=== PATIENT | female | born 1970 | race Caucasian/White ===

== ENCOUNTER 2017-04-27 00:10 | Inpatient (IN) | payer MEDICAID, OTHER ==
[2017-04-27] MEDS ORDERED: NS 1,000 ML IV ONE ×2 (01:09→04:38)
--- NOTE | 2017-04-27 01:09 | EDPHY ---
H & P Stated Complaint: c/o lower abd pain, pain with urination, frequency, urgency x 1 day Time Seen by Provider: 04/27/17 00:42 HPI/ROS: Chief Complaint: Left lower abdominal pain HPI: 46-year-old HIV-positive woman presenting with low lower quadrant abdominal cramping for the last 24 hours. It is similar to her prior ovarian cyst she has had in the past. She has a history of a total abdominal hysterectomy in 2014. Has had no nausea vomiting or diarrhea. Has had some urinary urgency and frequency. Her last CD4 count was 650 and her viral load is undetectable. Denies fevers or chills. No chest pain or shortness of breath. Waxes and wanes. There are no aggravating or alleviating factors. ROS: 10 point Review of Systems is negative except as noted in the HPI. PMH: HIV-positive Social History: No smoking, rare alcohol, no recreational drug use Family History: non-contributory Physical Exam: Gen: Awake, Alert, No Distress HEENT: Nose: no rhinorrhea Eyes: PERRLA, EOMI Mouth: Moist mucosa Neck: Supple, no JVD Chest: nontender, lungs clear to auscultation Heart: S1, S2 normal, no murmur Abd: Soft, significant left lower quadrant tenderness with guarding, no guarding Back: no CVA tenderness, no midline tenderness Ext: no edema, non-tender Skin: no rash Neuro: CN II-XII intact, Sensation grossly intact, Strength 5/5 in bilateral upper and lower extremities - Medical/Surgical History Hx Asthma: No Hx Chronic Respiratory Disease: No Hx Diabetes: No Hx Cardiac Disease: No Hx Renal Disease: No Hx Cirrhosis: No Hx Alcoholism: No Hx HIV/AIDS: Yes Hx Splenectomy or Spleen Trauma: No Other PMH: hiv +, hysterectomy, c section x 2, tonsillectomy - Social History Smoking Status: Never smoked Constitutional: Initial Vital Signs Temperature (C) 37.5 C 04/27/17 00:24 Heart Rate 77 04/27/17 00:24 Respiratory Rate 16 04/27/17 00:24 Blood Pressure 94/63 L 04/27/17 00:24 O2 Sat (%) 96 04/27/17 00:24 O2 Delivery Mode Room Air Allergies/Adverse Reactions: tape Allergy (Uncoded 04/27/17 00:28) Home Medications: Medication Instructions Recorded CALCIUM 04/27/17 Descovy 200-25 mg Tablet 04/27/17 Estradiol 04/27/17 Iron 04/27/17 Multivitamin 04/27/17 Norvir 04/27/17 Presista 04/27/17 VITAMIN D 04/27/17 Vitamin B12 04/27/17 Vitamin C 04/27/17 buPROPion XL 04/27/17 Medical Decision Making - Diagnostics Imaging Results: CT scan abdomen pelvis shows sigmoid diverticulitis with a pericolic fluid collection. There is no free air. Interpreted by Dr. Jonas. Ultrasound shows no free fluid in the pelvis. Ovaries are not visualized. Interpreted by Dr. Jonas. ED Course/Re-evaluation: 46-year-old female with left lower quadrant abdominal pain. She has got a sigmoid diverticulitis with some pericolic fluid collection concerning for possible early abscess. I have discussed with Dr. Jacob, hospitalist. He would like ceftriaxone and Flagyl. He has been ordered. He will admit for further evaluation. - Data Points Laboratory Results: Laboratory Results 04/27/17 01:11 04/27/17 01:11 04/27/17 04/27/17 04/27/17 01:20 01:11 01:11 WBC 8.89 10^3/uL 10^3/uL (3.80-9.50) RBC 3.26 10^6/uL L 10^6/uL (4.18-5.33) Hgb 12.1 g/dL L g/dL (12.6-16.3) Hct 34.6 % L % (38.0-47.0) MCV 106.1 fL H fL (81.5-99.8) MCH 37.1 pg H pg (27.9-34.1) MCHC 35.0 g/dL g/dL (32.4-36.7) RDW 12.1 % % (11.5-15.2) Plt Count 118 10^3/uL L 10^3/uL (150-400) MPV 9.4 fL fL (8.7-11.7) Neut % (Auto) 75.2 % H % (39.3-74.2) Lymph % (Auto) 13.0 % L % (15.0-45.0) [place] % (Auto) 9.8 % % (4.5-13.0) Eos % (Auto) 1.3 % % (0.6-7.6) Baso % (Auto) 0.3 % % (0.3-1.7) Nucleat RBC Rel Count 0.0 % % (0.0-0.2) Absolute Neuts (auto) 6.67 10^3/uL H 10^3/uL (1.70-6.50) Absolute Lymphs (auto) 1.16 10^3/uL 10^3/uL (1.00-3.00) Absolute Monos (auto) 0.87 10^3/uL H 10^3/uL (0.30-0.80) Absolute Eos (auto) 0.12 10^3/uL 10^3/uL (0.03-0.40) Absolute Basos (auto) 0.03 10^3/uL 10^3/uL (0.02-0.10) Absolute Nucleated RBC 0.00 10^3/uL 10^3/uL (0-0.01) Immature Gran % 0.4 % % (0.0-1.1) Immature Gran # 0.04 10^3/uL 10^3/uL (0.00-0.10) Sodium 140 mEq/L mEq/L (134-144) Potassium 3.9 mEq/L mEq/L (3.5-5.2) Chloride 108 mEq/L mEq/L (97-110) Carbon Dioxide 22 mEq/l mEq/l (22-31) Anion Gap 10 mEq/L mEq/L (8-16) BUN 10 mg/dL mg/dL (7-23) Creatinine 0.7 mg/dL mg/dL (0.6-1.0) Estimated GFR > 60 Glucose 112 mg/dL H mg/dL (70-100) Calcium 8.7 mg/dL mg/dL (8.5-10.4) Urine Color YELLOW Urine Appearance CLEAR Urine pH 7.0 (5.0-7.5) Ur Specific [place] 1.005 (1.002-1.030) Urine Protein NEGATIVE (NEGATIVE) Urine Ketones NEGATIVE (NEGATIVE) Urine Blood NEGATIVE (NEGATIVE) Urine Nitrate NEGATIVE (NEGATIVE) Urine Bilirubin NEGATIVE (NEGATIVE) Urine Urobilinogen NEGATIVE EU EU (0.2-1.0) Ur Leukocyte Esterase NEGATIVE (NEGATIVE) Urine Glucose NEGATIVE (NEGATIVE) Medications Given: Discontinued Medications Sodium Chloride (Ns) 1,000 mls @ 0 mls/hr IV ONCE ONE PRN Reason: Wide Open Stop: 04/27/17 01:10 Last Admin: 04/27/17 01:29 Dose: 1,000 mls Morphine Sulfate (Morphine) 4 mg IVP ONCE ONE Stop: 04/27/17 01:10 Last Admin: 04/27/17 01:29 Dose: 4 mg Departure - Departure Referrals: Elena Santacruz MD [Primary Care Provider] - As per Instructions
[2017-04-27 01:21] LABS: % IMMATURE GRANULYOCYTES 0.4 % (0.0-1.1); ABSOLUTE IMMATURE GRANULOCYTES 0.04 10^3/uL (0.00-0.10); ADD DIFF? NO; ADD MORPH? NO; ADD SCAN? NO; ATYPICAL LYMPHOCYTE FLAG 0 (0-99); FRAGMENT RBC FLAG 0 (0-99); HEMATOCRIT 34.6 % (38.0-47.0); HEMOGLOBIN 12.1 g/dL (12.6-16.3); LEFT SHIFT FLG 0 (0-99); LIPEMIA HEMOLYSIS FLAG 90 (0-99); MEAN CELL HEMOGLOBIN 37.1 pg (27.9-34.1); MEAN CELL VOLUME 106.1 fL (81.5-99.8); MEAN PLATELET VOLUME 9.4 fL (8.7-11.7); PLATELET CLUMPS FLAG 20 (0-99); PLATELET COUNT 118 10^3/uL (150-400); RED BLOOD CELL COUNT 3.26 10^6/uL (4.18-5.33); RED CELL DISTRIBUTION WIDTH 12.1 % (11.5-15.2)
[2017-04-27 01:44] LABS: ANION GAP 10 mEq/L (8-16); CALCIUM 8.7 mg/dL (8.5-10.4); CARBON DIOXIDE 22 mEq/l (22-31); CHLORIDE 108 mEq/L (97-110); CREATININE 0.7 mg/dL (0.6-1.0); GLOMERULAR FILTRATION RATE > 60; GLUCOSE 112 mg/dL (70-100); POTASSIUM 3.9 mEq/L (3.5-5.2); SODIUM 140 mEq/L (134-144)
[2017-04-27 01:57] LABS: COLOR YELLOW; LEUKOCYTE ESTERASE,URINE NEGATIVE (NEGATIVE); NITRITE,URINE NEGATIVE (NEGATIVE)
[2017-04-27] MEDS ORDERED: IOPAMIDOL (ISOVUE-300) 100 ML BTL ONE (03:16)
[2017-04-27] MEDS ORDERED: cefTRIAXone 2 GM in D5W 50 ML IV ONE (04:18)
[2017-04-27] MEDS ORDERED: ONDANSETRON DISINTEGRATING 4 MG TAB PO PRN (04:38)
[2017-04-27] MEDS ORDERED: HYDROmorphONE/DILAUDID 1 MG/ML SYR IVP PRN (04:38)
--- NOTE | 2017-04-27 04:45 | PDGENHP ---
History and Physical - Chief Complaint Abdominal pain - History of Present Illness 46 yo F w/ hx of HIV (well controlled, compliant on HAART, no hx of AIDS defining illnesses) presenting with 2 days of LLQ pain. Patient first noticed mild, crampy LLQ pain 2 days prior to presentation. This pain progressed to become severe over the course of the following 48 hours. She denies fevers, chills, diarrhea, and blood in stool. She is still passing gas but has not had a BM in 24 hours. She has a hx of prior hysterectomy but no previous bowel surgeries or complications. History Information - Allergies/Home Medication List Allergies/Adverse Reactions: tape Allergy (Uncoded 04/27/17 00:28) Home Medications: CALCIUM 04/27/17 [Last Taken Unknown] Descovy 200-25 mg Tablet 04/27/17 [Last Taken Unknown] Estradiol 04/27/17 [Last Taken Unknown] Iron 04/27/17 [Last Taken Unknown] Multivitamin 04/27/17 [Last Taken Unknown] Norvir 04/27/17 [Last Taken Unknown] Presista 04/27/17 [Last Taken Unknown] VITAMIN D 04/27/17 [Last Taken Unknown] Vitamin B12 04/27/17 [Last Taken Unknown] Vitamin C 04/27/17 [Last Taken Unknown] buPROPion XL 04/27/17 [Last Taken Unknown] I have personally reviewed and updated: family history, medical history - Past Medical History HIV - Surgical History Reports: hysterectomy - Family History Positive for: CAD - Social History Smoking Status: Never smoked Alcohol Use: None Drug Use: None Review of Systems ROS: 10pt was reviewed & negative except for what was stated in HPI & below Physical Exam Temp Pulse Resp BP Pulse Ox 37.5 C 67 16 88/62 L 93 04/27/17 00:24 04/27/17 03:46 04/27/17 03:46 04/27/17 03:46 04/27/17 03:46 Constitutional: appears nourished, uncomfortable Eyes: PERRL, EOMI Ears, Nose, Mouth, Throat: moist mucous membranes, no oral mucosal ulcers Cardiovascular: regular rate and rhythym, no murmur, rub, or gallop Respiratory: no respiratory distress, clear to auscultation Gastrointestinal: tenderness (LLQ, severe), guarding, No rebound Skin: warm, no rashes or abrasions Musculoskeletal: full muscle strength, no muscle tenderness Neurologic: AAOx3, CN II-XII Intact Psychiatric: interacting appropriately, not anxious Lab Data & Imaging Review 04/27/17 01:11 04/27/17 01:11 WBC 8.89 10^3/uL (3.80-9.50) 04/27/17 01:11 RBC 3.26 10^6/uL (4.18-5.33) L 04/27/17 01:11 Hgb 12.1 g/dL (12.6-16.3) L 04/27/17 01:11 Hct 34.6 % (38.0-47.0) L 04/27/17 01:11 MCV 106.1 fL (81.5-99.8) H 04/27/17 01:11 MCH 37.1 pg (27.9-34.1) H 04/27/17 01:11 MCHC 35.0 g/dL (32.4-36.7) 04/27/17 01:11 RDW 12.1 % (11.5-15.2) 04/27/17 01:11 Plt Count 118 10^3/uL (150-400) L 04/27/17 01:11 MPV 9.4 fL (8.7-11.7) 04/27/17 01:11 Neut % (Auto) 75.2 % (39.3-74.2) H 04/27/17 01:11 Lymph % (Auto) 13.0 % (15.0-45.0) L 04/27/17 01:11 [place] % (Auto) 9.8 % (4.5-13.0) 04/27/17 01:11 Eos % (Auto) 1.3 % (0.6-7.6) 04/27/17 01:11 Baso % (Auto) 0.3 % (0.3-1.7) 04/27/17 01:11 Nucleat RBC Rel Count 0.0 % (0.0-0.2) 04/27/17 01:11 Absolute Neuts (auto) 6.67 10^3/uL (1.70-6.50) H 04/27/17 01:11 Absolute Lymphs (auto) 1.16 10^3/uL (1.00-3.00) 04/27/17 01:11 Absolute Monos (auto) 0.87 10^3/uL (0.30-0.80) H 04/27/17 01:11 Absolute Eos (auto) 0.12 10^3/uL (0.03-0.40) 04/27/17 01:11 Absolute Basos (auto) 0.03 10^3/uL (0.02-0.10) 04/27/17 01:11 Absolute Nucleated RBC 0.00 10^3/uL (0-0.01) 04/27/17 01:11 Immature Gran % 0.4 % (0.0-1.1) 04/27/17 01:11 Immature Gran # 0.04 10^3/uL (0.00-0.10) 04/27/17 01:11 Sodium 140 mEq/L (134-144) 04/27/17 01:11 Potassium 3.9 mEq/L (3.5-5.2) 04/27/17 01:11 Chloride 108 mEq/L (97-110) 04/27/17 01:11 Carbon Dioxide 22 mEq/l (22-31) 04/27/17 01:11 Anion Gap 10 mEq/L (8-16) 04/27/17 01:11 BUN 10 mg/dL (7-23) 04/27/17 01:11 Creatinine 0.7 mg/dL (0.6-1.0) 04/27/17 01:11 Estimated GFR > 60 04/27/17 01:11 Glucose 112 mg/dL (70-100) H 04/27/17 01:11 Calcium 8.7 mg/dL (8.5-10.4) 04/27/17 01:11 Urine Color YELLOW 04/27/17 01:20 Urine Appearance CLEAR 04/27/17 01:20 Urine pH 7.0 (5.0-7.5) 04/27/17 01:20 Ur Specific [place] 1.005 (1.002-1.030) 04/27/17 01:20 Urine Protein NEGATIVE (NEGATIVE) 04/27/17 01:20 Urine Ketones NEGATIVE (NEGATIVE) 04/27/17 01:20 Urine Blood NEGATIVE (NEGATIVE) 04/27/17 01:20 Urine Nitrate NEGATIVE (NEGATIVE) 04/27/17 01:20 Urine Bilirubin NEGATIVE (NEGATIVE) 04/27/17 01:20 Urine Urobilinogen NEGATIVE EU (0.2-1.0) 04/27/17 01:20 Ur Leukocyte Esterase NEGATIVE (NEGATIVE) 04/27/17 01:20 Urine Glucose NEGATIVE (NEGATIVE) 04/27/17 01:20 Imaging Review: Discussed imaging results with ED physician. Per radiology, CT w/ evidence of sigmoid diverticulitis, pericolic fluid collection, and no free air. Assessment & Plan Assessment: 46 yo F w/ well controlled HIV presents with acute diverticulitis. Plan: 1. Acute diverticulitis - Sigmoid diverticulitis with morris-colic fluid collection but no clear abscess, per radiologist. Afebrile and with normal WBC. In severe pain for 48 hours prior to presentation. She denies blood in her stool. - IVF, Ceftriaxone and Metronidazole for empiric intra-abdominal coverage - Will order blood cultures - IV pain control and anti-emetics - May require surgical consult if symptoms do not resolve with supportive care 2. HIV - Well controlled, last CD4 650 and VL undetectable. Diet - Clears, ADAT Ppx - SCDs Code - Full Dispo - Admit to inpatient for IV abx and monitoring of symptoms
[2017-04-27 06:01] LABS: % IMMATURE GRANULYOCYTES 0.5 % (0.0-1.1); ABSOLUTE IMMATURE GRANULOCYTES 0.04 10^3/uL (0.00-0.10); ADD DIFF? NO; ADD MORPH? NO; ADD SCAN? NO; ATYPICAL LYMPHOCYTE FLAG 0 (0-99); FRAGMENT RBC FLAG 0 (0-99); HEMATOCRIT 33.3 % (38.0-47.0); HEMOGLOBIN 11.3 g/dL (12.6-16.3); LEFT SHIFT FLG 0 (0-99); LIPEMIA HEMOLYSIS FLAG 90 (0-99); MEAN CELL HEMOGLOBIN 36.7 pg (27.9-34.1); MEAN CELL HEMOGLOBIN CONCENTR. 33.9 g/dL (32.4-36.7); MEAN CELL VOLUME 108.1 fL (81.5-99.8); MEAN PLATELET VOLUME 9.2 fL (8.7-11.7); PLATELET CLUMPS FLAG 10 (0-99); PLATELET COUNT 107 10^3/uL (150-400); RED BLOOD CELL COUNT 3.08 10^6/uL (4.18-5.33); RED CELL DISTRIBUTION WIDTH 12.3 % (11.5-15.2)
[2017-04-27] MEDS: oxyCODONE IR 5 MG TAB PO PRN ×3 (06:01→12:42)
[2017-04-27 06:22] LABS: ANION GAP 9 mEq/L (8-16); CALCIUM 8.1 mg/dL (8.5-10.4); CARBON DIOXIDE 23 mEq/l (22-31); CHLORIDE 108 mEq/L (97-110); CREATININE 0.6 mg/dL (0.6-1.0); GLOMERULAR FILTRATION RATE > 60; GLUCOSE 90 mg/dL (70-100); POTASSIUM 3.8 mEq/L (3.5-5.2); SODIUM 140 mEq/L (134-144)
[2017-04-27] MEDS ORDERED: NON-FORMULARY NEW DRUG (Emtricitabine/Tenofov Alafenam [Descovy 200-25 Mg Tablet] 1 EACH) PO SCH (12:00)
[2017-04-27] MEDS ORDERED: RITONAVIR 100 MG TAB PO SCH (12:00)
[2017-04-27] MEDS ORDERED: Herbals/Supplements -Info Only PO SCH (12:00)
[2017-04-27] MEDS ORDERED: DARUNAVIR ETHANOLATE 800 MG TAB PO SCH (12:00)
[2017-04-27] MEDS ORDERED: CYANOCOBALAMIN 2500 MCG PO SCH (12:00)
--- NOTE | 2017-04-27 12:22 | HOSPPROG ---
Hospitalist Progress Note Assessment/Plan: Patient is a 46-year-old female with history of HIV, compliant with her medications who presented to the emergency room with 2 days of left lower quadrant pain. She describes it as being mild and crampy but became severe. I reviewed her CT scan of her abdomen which shows sigmoid diverticulitis with possible pericolic abscess. Today is my 1st encounter with the patient. Chart reviewed. * acute diverticulitis an immuno compromised patient On ceftriaxone and Flagyl Blood cultures are pending Will monitor closely out of concern for a possible abscess Pain is quite severe during my evaluation, spoke with Dr. Manzo and will have him follow with her She is afebrile with a stable white blood cell count but concerned due to being immunocompromised * HIV Last CD4 count was 650 and viral load was undetectable * plan. Dr. Manzo to see. Will notify Dr. Rothman of patient's admission. Subjective: Coby said she is feeling fine but had severe pain with gentle palpation to her left lower quadrant area. Objective: Vital Signs Temp Pulse Resp BP Pulse Ox 36.8 C 67 16 101/67 96 04/27/17 07:03 04/27/17 09:19 04/27/17 09:19 04/27/17 09:19 04/27/17 09:19 Laboratory Results 04/27/17 05:42 04/27/17 05:42 04/26/17 04/27/17 04/28/17 05:59 05:59 05:59 Intake Total 1350 Balance 1350 - Physical Exam Constitutional: appears nourished, obese, No not in pain Eyes: PERRL Ears, Nose, Mouth, Throat: hearing normal Cardiovascular: regular rate and rhythym Respiratory: no respiratory distress Gastrointestinal: tenderness (Left lower quadrant with very gentle touch), No normoactive bowel sounds (Hypoactive) Skin: warm, normal color Musculoskeletal: full muscle strength Neurologic: AAOx3 Psychiatric: interacting appropriately, not anxious ICD10 Worksheet Patient Problems: Problems Problem Status Onset Diverticulitis Acute - ICD10 Problem Qualifiers (1) Diverticulitis Qualifiers: Diverticulitis site: D Diverticulitis bleeding: D Diverticulitis complication: D
[2017-04-27] MEDS: ESTRADIOL 1 MG TAB PO SCH (12:34)
[2017-04-27] MEDS: MULTIVITAMINS 1 EACH TAB PO SCH (12:34)
[2017-04-27] MEDS: CHOLECALCIFEROL VIT D3 1,000 UNITS TAB PO SCH (12:34)
[2017-04-27] MEDS: buPROPion XL 150 MG TAB PO SCH (12:34)
[2017-04-27] MEDS: RITONAVIR 100 MG TAB PO SCH (12:35)
[2017-04-27] MEDS: DARUNAVIR ETHANOLATE 800 MG TAB PO SCH (12:36)
[2017-04-27] MEDS: Emtricitabine/Tenofov Alafenam [Descovy 200-25 Mg Tablet] PO SCH (12:37)
--- NOTE | 2017-04-27 15:16 | SOAPPROG ---
SOAP Progress Note Assessment/Plan: Assessment: 46-YEAR-OLD FEMALE WHO PRESENTS WITH HER 1ST EPISODE OF DIVERTICULITIS WITH SIGNIFICANT LEFT LOWER QUADRANT TENDERNESS FOR 72 HOURS. SHE IS AFEBRILE AND HAVING NO DIARRHEA OR CONSTIPATION PROBLEM. SHE HAS HAD NO PRIOR EPISODES OF DIVERTICULITIS. SHE HAS HAD NO COLONOSCOPY PAST HISTORY INCLUDES 2 C SECTIONS AND ABDOMINAL HYSTERECTOMY/SHE IS ALSO HIV POSITIVE ALLERGIES ARE TAPE MEDICATIONS ARE ANTI-RETROVIRAL MEDICINES, WELLBUTRIN REVIEW OF SYSTEMS IS NONCONTRIBUTORY HEENT IS NONICTERIC WITHOUT ADENOPATHY CHEST CLEAR COR REGULAR RHYTHM ABDOMEN IS SOFT SHE IS TENDER IN THE LEFT LOWER QUADRANT BUT NO GUARDING OR REBOUND/POSITIVE BOWEL SOUNDS EXTREMITIES ARE BENIGN WITH FULL PULSES IMPRESSION IS SIGNIFICANT DIVERTICULITIS/ON CT SCAN IS SUGGESTED A POSSIBLE EARLY ABSCESS FORMATION BUT SHE REMAINED AFEBRILE RISKS AND OPTIONS BEEN FULLY DISCUSSED THE PATIENT. WE WILL FOLLOW HER WITH YOU. IF SHE FAILS TO IMPROVE SHE WILL NEED SURGERY AND IF SHE DOES IMPROVE SHE MAY NEED ELECTIVE SURGERY DOWN THE LINE FOR HER DIVERTICULAR DISEASE Plan: OBSERVATION ON ANTIBIOTICS, IVS, CLEAR LIQUIDS 04/27/17 15:10 Objective: Vital Signs Temp Pulse Resp BP Pulse Ox 36.8 C 67 16 101/67 96 04/27/17 07:03 04/27/17 09:19 04/27/17 09:19 04/27/17 09:19 04/27/17 09:19 Laboratory Results 04/27/17 05:42 04/27/17 05:42 04/26/17 04/27/17 04/28/17 05:59 05:59 05:59 Intake Total 1350 Balance 1350 ICD10 Worksheet Patient Problems: Problems Problem Status Onset Diverticulitis Acute
[2017-04-27] MEDS: ONDANSETRON 4 MG/2 ML VIAL IVP PRN (19:29)
[2017-04-27] MEDS: ACETAMINOPHEN 325 MG TAB PO PRN (19:45)
[2017-04-28] MEDS: ACETAMINOPHEN 325 MG TAB PO PRN (06:08)
[2017-04-28] MEDS: ONDANSETRON 4 MG/2 ML VIAL IVP PRN ×2 (07:58→13:30)
[2017-04-28] MEDS: CHOLECALCIFEROL VIT D3 1,000 UNITS TAB PO SCH (08:04)
[2017-04-28] MEDS: buPROPion XL 150 MG TAB PO SCH (08:04)
[2017-04-28] MEDS: MULTIVITAMINS 1 EACH TAB PO SCH (08:05)
[2017-04-28] MEDS: CYANO/VITAMIN B12 1000 MCG TAB PO SCH (08:05)
[2017-04-28] MEDS: ASCORBIC ACID 500 MG TAB PO SCH (08:05)
[2017-04-28] MEDS: CALCIUM CARBONATE 500 MG TAB PO SCH (08:05)
[2017-04-28] MEDS: ESTRADIOL 1 MG TAB PO SCH (08:05)
[2017-04-28] MEDS: Emtricitabine/Tenofov Alafenam [Descovy 200-25 Mg Tablet] PO SCH (08:13)
[2017-04-28] MEDS: RITONAVIR 100 MG TAB PO SCH (08:13)
[2017-04-28] MEDS: DARUNAVIR ETHANOLATE 800 MG TAB PO SCH (08:13)
--- NOTE | 2017-04-28 08:34 | HOSPPROG ---
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 Cont IVF, abx. Surgery recs sigmoid resection in next few weeks #HIV: last viral load undetectable. Cont home meds #Acute abdominal pain: improved. IV opioids #Macrocytic anemia: stable #Diet: clears #DVT ppx: SCDs #Disp: cont inpt care for IV abx, pain control Subjective: no vomiting today, LLQ crampy pain Objective: Vital Signs Temp Pulse Resp BP Pulse Ox 36.7 C 99 20 112/75 98 04/28/17 07:32 04/28/17 07:32 04/28/17 07:32 04/28/17 07:32 04/28/17 07:32 Laboratory Results 04/27/17 05:42 04/27/17 05:42 04/27/17 04/28/17 04/29/17 05:59 05:59 05:59 Intake Total 1350 550 Balance 1350 550 - Physical Exam Constitutional: no apparent distress Eyes: PERRL Ears, Nose, Mouth, Throat: moist mucous membranes Cardiovascular: regular rate and rhythym, no murmur, rub, or gallop Respiratory: no respiratory distress, no rales or rhonchi Gastrointestinal: normoactive bowel sounds, tenderness (LLQ, no rebound/guarding ) Skin: warm Musculoskeletal: full muscle strength Neurologic: AAOx3, CN II-XII Intact ICD10 Worksheet Patient Problems: Problems Problem Status Onset Diverticulitis Acute
[2017-04-28] MEDS ORDERED: CALCIUM CARBONATE 600 MG PO SCH (09:00)
[2017-04-28] MEDS ORDERED: NS 1,000 ML IV SCH (10:00)
--- NOTE | 2017-04-28 10:23 | SOAPPROG ---
SOAP Progress Note Assessment/Plan: Assessment/Plan: 46 Y F HIV+, first episode of diverticulitis with likely early abscess formation. Seems to be doing well with IV antibiotics and clears. Would recommend further observation due to tenderness. Afebrile. WBCs wnl. We discussed several scenarios involving surgery. This is her first episode, however, with the early abscess formation I would recommend eventual sigmoid colectomy. Ideally, this would happen in several weeks once more cooled down. S: still has pain, but it is better. 11/29. On tylenol only for pain now. Had episode of N/V--zofran helping. No BM, +flatus. No fever/chills. O: alert, nad mmm, pupils equal no wob rrr abd soft, +LLQ tenderness with mild guarding 04/28/17 10:18 Objective: Vital Signs Temp Pulse Resp BP Pulse Ox 36.7 C 99 20 112/75 98 04/28/17 07:32 04/28/17 07:32 04/28/17 07:32 04/28/17 07:32 04/28/17 07:32 Laboratory Results 04/27/17 05:42 04/27/17 05:42 04/27/17 04/28/17 04/29/17 05:59 05:59 05:59 Intake Total 1350 550 Balance 1350 550 ICD10 Worksheet Patient Problems: Problems Problem Status Onset Diverticulitis Acute
--- NOTE | 2017-04-28 11:07 | SOAPPROG ---
SOAP Progress Note Assessment/Plan: Assessment: 46-YEAR-OLD FEMALE WHO PRESENTS WITH HER 1ST EPISODE OF DIVERTICULITIS WITH SIGNIFICANT LEFT LOWER QUADRANT TENDERNESS FOR 72 HOURS. SHE IS AFEBRILE AND HAVING NO DIARRHEA OR CONSTIPATION PROBLEM. SHE HAS HAD NO PRIOR EPISODES OF DIVERTICULITIS. SHE HAS HAD NO COLONOSCOPY PAST HISTORY INCLUDES 2 C SECTIONS AND ABDOMINAL HYSTERECTOMY/SHE IS ALSO HIV POSITIVE ALLERGIES ARE TAPE MEDICATIONS ARE ANTI-RETROVIRAL MEDICINES, WELLBUTRIN REVIEW OF SYSTEMS IS NONCONTRIBUTORY HEENT IS NONICTERIC WITHOUT ADENOPATHY CHEST CLEAR COR REGULAR RHYTHM ABDOMEN IS SOFT SHE IS TENDER IN THE LEFT LOWER QUADRANT BUT NO GUARDING OR REBOUND/POSITIVE BOWEL SOUNDS EXTREMITIES ARE BENIGN WITH FULL PULSES IMPRESSION IS SIGNIFICANT DIVERTICULITIS/ON CT SCAN IS SUGGESTED A POSSIBLE EARLY ABSCESS FORMATION BUT SHE REMAINED AFEBRILE RISKS AND OPTIONS BEEN FULLY DISCUSSED THE PATIENT. WE WILL FOLLOW HER WITH YOU. 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
[2017-04-29 05:41] LABS: HEMATOCRIT 32.6 % (38.0-47.0); HEMOGLOBIN 11.1 g/dL (12.6-16.3); MEAN CELL HEMOGLOBIN 36.9 pg (27.9-34.1); MEAN CELL VOLUME 108.3 fL (81.5-99.8); RED BLOOD CELL COUNT 3.01 10^6/uL (4.18-5.33); RED CELL DISTRIBUTION WIDTH 11.9 % (11.5-15.2)
[2017-04-29 05:54] LABS: ANION GAP 7 mEq/L (8-16); CALCIUM 8.4 mg/dL (8.5-10.4); CARBON DIOXIDE 25 mEq/l (22-31); CHLORIDE 107 mEq/L (97-110); CREATININE 0.7 mg/dL (0.6-1.0); GLOMERULAR FILTRATION RATE > 60; GLUCOSE 79 mg/dL (70-100); SODIUM 139 mEq/L (134-144)
--- NOTE | 2017-04-29 08:11 | HOSPPROG ---
Hospitalist Progress Note Assessment/Plan: #Acute diverticulitis: surgery would like to cont IV abx with pain. Sigmoid resection in next few weeks #HIV: last viral load undetectable. Cont home meds #Acute abdominal pain: improved. IV opioids #Macrocytic anemia: stable #Diet: low-fiber diet #DVT ppx: SCDs #Disp: cont inpt care for IV abx, pain control Subjective: pain still present. Tolerated breakfast Objective: Vital Signs Temp Pulse Resp BP Pulse Ox 36.9 C 60 20 118/84 H 97 04/29/17 07:49 04/29/17 07:49 04/29/17 07:49 04/29/17 07:49 04/29/17 07:49 Laboratory Results 04/29/17 04:57 04/29/17 04:57 04/28/17 04/29/17 04/30/17 05:59 05:59 05:59 Intake Total 550 650 Output Total 200 Balance 550 450 - Physical Exam Constitutional: no apparent distress, obese Eyes: PERRL Ears, Nose, Mouth, Throat: moist mucous membranes, hearing normal Cardiovascular: regular rate and rhythym, no murmur, rub, or gallop Respiratory: no respiratory distress, no rales or rhonchi Gastrointestinal: tenderness (left lower quad. No rebound/guard) Skin: warm Musculoskeletal: full muscle strength Neurologic: AAOx3, CN II-XII Intact ICD10 Worksheet Patient Problems: Problems Problem Status Onset Diverticulitis Acute
[2017-04-29] MEDS: buPROPion XL 150 MG TAB PO SCH (08:45)
[2017-04-29] MEDS: RITONAVIR 100 MG TAB PO SCH (08:47)
[2017-04-29] MEDS: DARUNAVIR ETHANOLATE 800 MG TAB PO SCH (08:47)
[2017-04-29] MEDS: Emtricitabine/Tenofov Alafenam [Descovy 200-25 Mg Tablet] PO SCH (08:48)
[2017-04-29] MEDS: ASCORBIC ACID 500 MG TAB PO SCH (09:42)
[2017-04-29] MEDS: CALCIUM CARBONATE 500 MG TAB PO SCH (09:42)
[2017-04-29] MEDS: CHOLECALCIFEROL VIT D3 1,000 UNITS TAB PO SCH (09:43)
[2017-04-29] MEDS: MULTIVITAMINS 1 EACH TAB PO SCH (09:43)
[2017-04-29] MEDS: ESTRADIOL 1 MG TAB PO SCH (09:43)
[2017-04-29] MEDS: CYANO/VITAMIN B12 1000 MCG TAB PO SCH (09:43)
--- NOTE | 2017-04-29 11:22 | SOAPPROG ---
SOAP Progress Note Assessment/Plan: Assessment/Plan: 46 Y F HIV+, first episode of diverticulitis with likely early abscess formation. Responding to antibiotics. Afebrile, WBC's wnl, pyrotechnics press tender but with improvement. Continue IV abx. Ok to try low residue/low fiber diet. Again, will likely need sigmoid colectomy despite this being her first episode. Ideally this would happen in several weeks after repeat scanning if she does well. Seen and examined with Dr. Manzo. D/w'ed medicine. S: Not using tylenol anymore. No pain at rest, +pain with pressure. +n/v with clears only. Crackers helped last night. O: alert, nad mmm, pupils equal no wob rrr abd soft, +LLQ tenderness with mild--less--guarding, compared to yesterday 04/29/17 11:19 Objective: Vital Signs Temp Pulse Resp BP Pulse Ox 36.9 C 60 20 118/84 H 97 04/29/17 07:49 04/29/17 07:49 04/29/17 07:49 04/29/17 07:49 04/29/17 07:49 Laboratory Results 04/29/17 04:57 04/29/17 04:57 04/28/17 04/29/17 04/30/17 05:59 05:59 05:59 Intake Total 550 650 Output Total 200 Balance 550 450 ICD10 Worksheet Patient Problems: Problems Problem Status Onset Diverticulitis Acute
[2017-04-30] MEDS: ACETAMINOPHEN 325 MG TAB PO PRN ×2 (02:00→09:22)
[2017-04-30 06:04] LABS: ANION GAP 8 mEq/L (8-16); CALCIUM 8.7 mg/dL (8.5-10.4); CARBON DIOXIDE 27 mEq/l (22-31); CHLORIDE 104 mEq/L (97-110); CREATININE 0.7 mg/dL (0.6-1.0); GLOMERULAR FILTRATION RATE > 60; GLUCOSE 88 mg/dL (70-100); SODIUM 139 mEq/L (134-144)
[2017-04-30 08:05] VITALS: BP 127/78; PULSE 58; RESP 12; TEMP 98.2
[2017-04-30 08:06] VITALS: O2SAT 97
[2017-04-30] MEDS: buPROPion XL 150 MG TAB PO SCH (09:25)
[2017-04-30] MEDS: ESTRADIOL 1 MG TAB PO SCH (09:25)
[2017-04-30] MEDS: Emtricitabine/Tenofov Alafenam [Descovy 200-25 Mg Tablet] PO SCH (09:26)
[2017-04-30] MEDS: DARUNAVIR ETHANOLATE 800 MG TAB PO SCH (09:28)
[2017-04-30] MEDS: RITONAVIR 100 MG TAB PO SCH (09:29)
[2017-04-30] MEDS: ASCORBIC ACID 500 MG TAB PO SCH (09:56)
[2017-04-30] MEDS: CALCIUM CARBONATE 500 MG TAB PO SCH (09:57)
[2017-04-30] MEDS: CHOLECALCIFEROL VIT D3 1,000 UNITS TAB PO SCH (09:57)
[2017-04-30] MEDS: CYANO/VITAMIN B12 1000 MCG TAB PO SCH (09:58)
[2017-04-30] MEDS: MULTIVITAMINS 1 EACH TAB PO SCH (09:58)
--- NOTE | 2017-04-30 10:41 | SOAPPROG ---
SOAP Progress Note Assessment/Plan: Assessment/Plan: 46 Y F HIV+, first episode of diverticulitis with likely early abscess formation. Tenderness much better. Tolerating low fiber diet. Doing better with N/V since diet advancement. This problem likely 2/2 HIV meds and empty stomach. Again, will likely need sigmoid colectomy despite this being her first episode. Ideally this would happen in several weeks after repeat scanning if she does well. This all discussed with patient. Could likely d/c to home today with oral antibiotics, low residue diet, and close outpatient f/u. S: Not using tylenol anymore. Pain and N/V much improved. O: alert, nad mmm, pupils equal no wob rrr abd soft, +LLQ tenderness with mild--less--guarding, compared to yesterday again 04/30/17 10:37 Objective: Vital Signs Temp Pulse Resp BP Pulse Ox 36.8 C 58 L 12 127/78 H 97 04/30/17 08:00 04/30/17 08:00 04/30/17 08:00 04/30/17 08:00 04/30/17 08:00 Laboratory Results 04/29/17 04:57 04/30/17 05:35 04/29/17 04/30/17 05/01/17 05:59 05:59 05:59 Intake Total 650 480 Output Total 200 Balance 450 480 ICD10 Worksheet Patient Problems: Problems Problem Status Onset Diverticulitis Acute
--- NOTE | 2017-04-30 11:01 | HOSPPROG ---
Hospitalist Progress Note Assessment/Plan: #Acute diverticulitis: improved pain. Tolerating low-fiber diet. FU surgery. Oral abx Sigmoid resection in next few weeks #HIV: last viral load undetectable. Cont home meds #Acute abdominal pain: improved. IV opioids #Macrocytic anemia: stable #Diet: low-fiber diet #DVT ppx: SCDs #Disp: DC today Objective: Vital Signs Temp Pulse Resp BP Pulse Ox 36.8 C 58 L 12 127/78 H 97 04/30/17 08:00 04/30/17 08:00 04/30/17 08:00 04/30/17 08:00 04/30/17 08:00 Laboratory Results 04/29/17 04:57 04/30/17 05:35 04/29/17 04/30/17 05/01/17 05:59 05:59 05:59 Intake Total 650 480 Output Total 200 Balance 450 480 - Physical Exam Constitutional: no apparent distress Eyes: PERRL Ears, Nose, Mouth, Throat: moist mucous membranes, hearing normal Cardiovascular: regular rate and rhythym, no murmur, rub, or gallop Respiratory: no respiratory distress, no rales or rhonchi Gastrointestinal: tenderness (left LLQ), No guarding, No rebound Genitourinary: no bladder fullness Skin: warm Musculoskeletal: full muscle strength Neurologic: AAOx3, CN II-XII Intact ICD10 Worksheet Patient Problems: Problems Problem Status Onset Diverticulitis Acute
--- NOTE | 2017-04-30 14:56 | GDS ---
[f rep st] DISCHARGE SUMMARY DISCHARGE DIAGNOSES: 1. Acute diverticulitis. 2. Acute abdominal pain. 3. Human immunodeficiency virus. 4. Macrocytic anemia. HISTORY OF PRESENT ILLNESS: Patient is a pleasant 46-year-old female with history of well-controlle d HIV presenting with 2 days of left lower quadrant pain. It was initially mild and cramping. Guerrero john, it became so severe over the last couple days prior to admission, she was unable to tolerate. She denies fevers, chills, sweats, diarrhea. At time of admission, she was still passing gas but no t had a BM in 24 hours. HOSPITAL COURSE BY PROBLEM: 1. Acute diverticulitis: CT demonstrated sigmoid diverticulitis with pericolic fluid collection bu t no clear abscess. Dr. Manzo consulted with Surgery. She was treated conservatively with IV fluid s and antibiotics. She still has mild tenderness but is tolerating p.o. and having BMs. Will trans ition to Augmentin at discharge for 7 more days. She is to follow up with Dr. Manzo for elective si gmoid resection in the next couple weeks. 2. Human immunodeficiency virus, well controlled. Last viral load was undetectable. 3. Microcytic anemia. DISPOSITION: Patient is stable for discharge. NEW MEDICATIONS: Augmentin. FOLLOWUP: Dr. Manzo. /[id number]/MODL
== END 2017-04-30 11:55 | disposition home or self-care (01) | DRG 392 ==
LOC: F3E 05:25
PROVIDERS: ADMIT Student in an Organized Health Care Education/Training Program; ATTEND Internal Medicine
DX: K57.92 Diverticulitis of intestine, part unspecified, without perforation or abscess without bleeding (principal); Z21 Asymptomatic human immunodeficiency virus [HIV] infection status; Z90.710 Acquired absence of both cervix and uterus; D53.9 Nutritional anemia, unspecified
CPT/HCPCS: J0696; J2405; Q9967

== ENCOUNTER → 2017-06-20 | Outpatient (CLI) | payer OTHER ==
[~2017-06-20] MED LIST: IOPAMIDOL (ISOVUE-300) 100 ML BTL ONE
== END ==
LOC: FIMAGING 14:50
PROVIDERS: ATTEND Surgery
DX: K57.12 Diverticulitis of small intestine without perforation or abscess without bleeding (principal)
CPT/HCPCS: Q9967

== ENCOUNTER 2017-06-23 16:21 | Inpatient (IN) | payer OTHER ==
[2017-06-23] MEDS ORDERED: ONDANSETRON 4 MG/2 ML VIAL IVP PRN (16:46)
[2017-06-23] MEDS ORDERED: ONDANSETRON DISINTEGRATING 4 MG TAB PO PRN (16:46)
[2017-06-23] MEDS: HYDROmorphONE/DILAUDID 1 MG/ML INJ IVP PRN (17:53)
[2017-06-23] MEDS: ERTAPENEM 1 GM in NS 100 ML IV SCH (18:08)
[2017-06-23] MEDS: D5W 1/2 NS 1,000 ML IV SCH (19:14)
[2017-06-23 20:18] LABS: % IMMATURE GRANULYOCYTES 0.2 % (0.0-1.1); ABSOLUTE IMMATURE GRANULOCYTES 0.01 10^3/uL (0.00-0.10); ADD DIFF? NO; ADD MORPH? NO; ADD SCAN? NO; ATYPICAL LYMPHOCYTE FLAG 10 (0-99); FRAGMENT RBC FLAG 0 (0-99); HEMATOCRIT 35.5 % (38.0-47.0); HEMOGLOBIN 12.3 g/dL (12.6-16.3); LEFT SHIFT FLG 0 (0-99); LIPEMIA HEMOLYSIS FLAG 90 (0-99); MEAN CELL HEMOGLOBIN 36.9 pg (27.9-34.1); MEAN CELL HEMOGLOBIN CONCENTR. 34.6 g/dL (32.4-36.7); MEAN CELL VOLUME 106.6 fL (81.5-99.8); MEAN PLATELET VOLUME 8.9 fL (8.7-11.7); PLATELET CLUMPS FLAG 0 (0-99); PLATELET COUNT 157 10^3/uL (150-400); RED BLOOD CELL COUNT 3.33 10^6/uL (4.18-5.33); RED CELL DISTRIBUTION WIDTH 12.3 % (11.5-15.2)
--- NOTE | 2017-06-23 20:28 | PDGENHP ---
History & Physical Chief Complaint: LEFT LOWER QUADRANT PAIN History of Present Illness: 46-YEAR-OLD FEMALE WITH RECURRENT LEFT LOWER QUADRANT PAIN, RECENT TREATMENT FOR DIVERTICULITIS. ADMITTED AT THIS TIME FOR IV ANTIBIOTICS AND PAIN CONTROL. SHE IS AFEBRILE. Pertinent Past, Social, Family History: PAST MEDICAL HISTORY 2 C SECTIONS AND A HYSTERECTOMY. REVIEW OF SYSTEMS IS NEGATIVE ON A 10 POINT REVIEW OF SYSTEMS. NO KNOWN ALLERGIES. MEDICATIONS NONE. FAMILY HISTORY IS NONCONTRIBUTORY Relevant Physical Exam: GENERAL AND HEALTHY 46-YEAR-OLD FEMALE WHO IS IN SOME DISCOMFORT, AFEBRILE. HEENT WITHOUT ICTERUS ADENOPATHY OR ORAL LESIONS, NECK IS SUPPLE. CHEST CLEAR AND SYMMETRIC. COR REGULAR RHYTHM WITHOUT MURMURS. ABDOMEN IS SOFT BUT SEVERELY TENDER IN THE LEFT LOWER QUADRANT WITH GUARDING. EXTREMITIES ARE BENIGN. NEURO EXAM IS PHYSIOLOGIC. SKIN WITHOUT LESIONS Cardiorespiratory Assessment: IMPRESSION: RECURRENT DIVERTICULITIS DESPITE IN IMPROVING CT SCAN DONE ONLY 3 DAYS AGO. PLAN IS ADMIT FOR IV ANTIBIOTICS AND PAIN CONTROL. RISKS AND OPTIONS FULLY DISCUSSED. SHE UNDERSTANDS THE POSSIBLE NEED FOR SURGERY
[2017-06-23 20:35] LABS: ALANINE AMINOTRANSFERASE 56 IU/L (9-52); ALBUMIN 3.7 g/dL (3.5-5.0); ALKALINE PHOSPHATASE 76 IU/L (38-126); ANION GAP 9 mEq/L (8-16); ASPARTATE AMINOTRANSFERASE 32 IU/L (14-46); BILIRUBIN,TOTAL 0.4 mg/dL (0.1-1.4); CALCIUM 8.5 mg/dL (8.5-10.4); CARBON DIOXIDE 26 mEq/l (22-31); CHLORIDE 103 mEq/L (97-110); CREATININE 0.7 mg/dL (0.6-1.0); GLOMERULAR FILTRATION RATE > 60; GLUCOSE 101 mg/dL (70-100); POTASSIUM 3.7 mEq/L (3.5-5.2); SODIUM 138 mEq/L (134-144); TOTAL PROTEIN 6.2 g/dL (6.3-8.2)
[2017-06-24] MEDS: ACETAMINOPHEN 325 MG TAB PO PRN ×3 (03:03→17:32)
[2017-06-24] MEDS: D5W 1/2 NS 1,000 ML IV SCH ×3 (03:03→20:36)
[2017-06-24] MEDS: ERTAPENEM 1 GM in NS 100 ML IV SCH (08:20)
--- NOTE | 2017-06-24 09:33 | ASMTCMCOM ---
CM Note CM Note Notes: Pt being treated for diverticulitis, anticipate will dc home w/support of family when medically stable. CM available for any changes. Date Signed: 06/24/2017 09:32 AM Electronically Signed By:Leigh Garner RN
[2017-06-24 12:41] LABS: COLOR PALE YELLOW; LEUKOCYTE ESTERASE,URINE NEGATIVE (NEGATIVE); NITRITE,URINE NEGATIVE (NEGATIVE)
--- NOTE | 2017-06-24 15:34 | SOAPPROG ---
[facility] Progress Note Assessment/Plan: Assessment/Plan: 46 Y F hx HIV admitted with recurrent diverticulitis. Afebrile. WBCs normal. UA neg for blood, so doubt renal lithiasis. can filling and closing machine tender, but improving with bowel rest and IV abx. Only using tylenol today per RN. Continue IV abx and bowel rest. Clears soon. Surgery recommended--possibly this admission after a few days of IV abx? Will need to d/w Dr. Manzo. Patient wanting to proceed if he is agreeable. Otherwise, would send home on oral abx and set up surgery as outpatient. S: tender, but better. no nausea like last visit. was feeling lots of bloating at home similar to prior episode. O: alert, nad mmm, no jaundice no wob rrr abd soft, +LUQ, LLQ tenderness without guarding 06/24/17 15:30 Objective: Vital Signs Temp Pulse Resp BP Pulse Ox 35.7 C L 51 L 14 92/69 L 97 06/24/17 11:39 06/24/17 11:39 06/24/17 11:39 06/24/17 11:39 06/24/17 11:39 Laboratory Results 06/23/17 20:12 06/23/17 20:12 06/23/17 06/24/17 06/25/17 05:59 05:59 05:59 Intake Total 107 Output Total 900 Balance 107 -900 ICD10 Worksheet Patient Problems: Problems Problem Status Onset Diverticulitis Acute
[2017-06-24] MEDS: DARUNAVIR ETHANOLATE 800 MG TAB PO SCH (17:08)
[2017-06-24] MEDS: Emtricitabine/Tenofov Alafenam [Descovy 200-25 Mg Tablet] 1 EACH) PO SCH (17:09)
[2017-06-24] MEDS: RITONAVIR 100 MG TAB PO SCH (17:09)
[2017-06-25] MEDS: ERTAPENEM 1 GM in NS 100 ML IV SCH (08:18)
[2017-06-25] MEDS: D5W 1/2 NS 1,000 ML IV SCH (08:19)
[2017-06-25] MEDS: buPROPion XL 150 MG TAB PO SCH (08:21)
[2017-06-25] MEDS: RITONAVIR 100 MG TAB PO SCH (08:22)
[2017-06-25] MEDS: Emtricitabine/Tenofov Alafenam [Descovy 200-25 Mg Tablet] 1 EACH) PO SCH (08:22)
[2017-06-25] MEDS: DARUNAVIR ETHANOLATE 800 MG TAB PO SCH (08:22)
[2017-06-25] MEDS: ACETAMINOPHEN 325 MG TAB PO PRN ×2 (08:27→15:55)
--- NOTE | 2017-06-25 11:00 | SOAPPROG ---
BREANA Progress Note Assessment/Plan: Assessment/Plan: 46 Y F hx HIV admitted with recurrent diverticulitis. Stable. Continue IV abx. Clears. Plan for surgery on Friday for lap assisted sigmoid colectomy. Risks and options discussed and she wants to proceed. Consent in chart. S: tender, but continues to be better. O: alert, nad mmm, no jaundice no wob rrr abd soft, +LUQ, LLQ tenderness without guarding 06/25/17 10:52 Objective: Vital Signs Temp Pulse Resp BP Pulse Ox 36.7 C 51 L 16 123/69 H 100 06/25/17 08:14 06/25/17 08:58 06/25/17 08:14 06/25/17 08:58 06/25/17 08:14 Laboratory Results 06/23/17 20:12 06/23/17 20:12 06/24/17 06/25/17 06/26/17 05:59 05:59 05:59 Intake Total 107 Output Total 2200 Balance 107 -2200 ICD10 Worksheet Patient Problems: Problems Problem Status Onset Diverticulitis Acute
[2017-06-26] MEDS: DARUNAVIR ETHANOLATE 800 MG TAB PO SCH (08:54)
[2017-06-26] MEDS: buPROPion XL 150 MG TAB PO SCH (08:54)
[2017-06-26] MEDS: RITONAVIR 100 MG TAB PO SCH (08:55)
[2017-06-26] MEDS: Emtricitabine/Tenofov Alafenam [Descovy 200-25 Mg Tablet] 1 EACH) PO SCH (08:56)
[2017-06-26] MEDS: ERTAPENEM 1 GM in NS 100 ML IV SCH (09:01)
--- NOTE | 2017-06-26 09:37 | SOAPPROG ---
SOAP Progress Note Assessment/Plan: Assessment: Feeling much better/abdomen soft/afebrile/still very tender in the left lower quadrant with palpated Tolerating clear liquids/positive flatus/urine output okay Plan: Sigmoid colectomy in the a.m./risks and options fully discussed the patient wishes to proceed rather than wait for another attack 06/26/17 09:36 Objective: Vital Signs Temp Pulse Resp BP Pulse Ox 37.0 C 54 L 16 123/72 H 95 06/26/17 07:52 06/26/17 07:52 06/26/17 07:52 06/26/17 07:52 06/26/17 07:52 Laboratory Results 06/23/17 20:12 06/23/17 20:12 06/25/17 06/26/17 06/27/17 05:59 05:59 05:59 Intake Total 800 Output Total 2200 1999 Balance -2200 -1200 ICD10 Worksheet Patient Problems: Problems Problem Status Onset Diverticulitis Acute
[2017-06-26] MEDS: ACETAMINOPHEN 325 MG TAB PO PRN ×2 (12:54→20:08)
[2017-06-27] MEDS: buPROPion XL 150 MG TAB PO SCH (08:35)
[2017-06-27] MEDS: ERTAPENEM 1 GM in NS 100 ML IV SCH (08:35)
[2017-06-27] MEDS: RITONAVIR 100 MG TAB PO SCH (08:39)
[2017-06-27] MEDS: DARUNAVIR ETHANOLATE 800 MG TAB PO SCH (08:39)
[2017-06-27] MEDS: Emtricitabine/Tenofov Alafenam [Descovy 200-25 Mg Tablet] 1 EACH) PO SCH (08:45)
[2017-06-27] MEDS ORDERED: BUPIVACAINE 0.5% 30 ML SDV ONE ×2 (10:26→12:56)
[2017-06-27] MEDS ORDERED: HEPARIN 1000 UNIT/1 ML MDV ONE ×2 (10:26→12:56)
[2017-06-27] MEDS ORDERED: ceFAZolin 1 GM/5 ML SYR ONE ×2 (10:27→12:56)
[2017-06-27] MEDS ORDERED: LR 1,000 ML IV ONE (10:57)
--- NOTE | 2017-06-27 11:39 | ASMTCMCOM ---
CM Note CM Note Notes: Spoke w/RN, pt having surgery today, still anticipate pt will dc home w/support of family when medically stable. CM available for any changes. Date Signed: 06/27/2017 11:38 AM Electronically Signed By:Leigh Garner RN
[2017-06-27] MEDS ORDERED: PROPOFOL 200 MG/20 ML VIAL ONE (12:54)
[2017-06-27] MEDS ORDERED: fentaNYL 100 MCG/2 ML INJ ONE ×3 (12:54→16:06)
[2017-06-27] MEDS ORDERED: MIDAZOLAM 2 MG/2 ML VIAL IVP ONE (12:55)
[2017-06-27] MEDS ORDERED: ONDANSETRON 4 MG/2 ML VIAL ONE (12:56)
[2017-06-27] MEDS ORDERED: DEXAMETHASONE 4 MG/ML VIAL ONE (12:56)
[2017-06-27] MEDS ORDERED: ROCURONIUM 50 MG/5 ML VIAL ONE (12:56)
[2017-06-27] MEDS ORDERED: LIDOCAINE 2% 5 ML SDV ONE (12:57)
--- NOTE | 2017-06-27 13:11 | PDANEPAE ---
ANE History of Present Illness sigmoid diverticulitis ANE Past Medical History - Cardiovascular History Hx Hypertension: No Hx Arrhythmias: No Hx Chest Pain: No Hx Coronary Artery / Peripheral Vascular Disease: No Hx CHF / Valvular Disease: No Hx Palpitations: No - Pulmonary History Hx COPD: No Hx Asthma/Reactive Airway Disease: Yes Hx Recent Upper Respiratory Infection: No Hx Oxygen in Use at Home: No Hx Sleep Apnea: No Sleep Apnea Screening Result - Last Documented: Negative - Endocrine History Hx Diabetes: No Obesity: yes - Other Health History Other Health History: HIV - Chronic Pain History Chronic Pain: No ANE Review of Systems Review of systems is: negative Review of Systems: - Exercise capacity Exercise capacity: >=4 METS ANE Patient History - Allergies Allergies/Adverse Reactions: tape Allergy (Uncoded 04/27/17 00:28) - Home Medications Home medications: home medication list seen and reviewed Home Medications: Ascorbic Acid [Vitamin C 500 mg (*)] 1,000 mg PO DAILY 04/27/17 [Last Taken 11/08 07:00] CALCIUM CARBONATE [CALCIUM] 600 mg PO DAILY 04/27/17 [Last Taken 06/23/17 07:00] Cholecalciferol Vit D3 [Vitamin D3 (*)] 1,000 units PO DAILY 04/27/17 [Last Taken 06/23/17 07:00] Cyanocobalamin (Vitamin B-12) [Vitamin B12] 2,500 mcg PO DAILY 04/27/17 [Last Taken 06/23/17 07:00] Darunavir Ethanolate [Prezista] 800 mg PO DAILY 04/27/17 [Last Taken 06/23/17 07 :00] Emtricitabine/Tenofov Alafenam [Descovy 200-25 mg Tablet] 1 each PO DAILY [Last Taken 06/23/17 07:00] Herbals/Supplements -Info Only 1 ea PO DAILY 04/27/17 [Last Taken 06/23/17 07:00 ] Multivitamins [Multivitamin (*)] 1 each PO DAILY 04/27/17 [Last Taken 06/23/17 07:00] Ritonavir [Norvir] 100 mg PO DAILY 04/27/17 [Last Taken 06/23/17 07:00] buPROPion XL [Wellbutrin 150mg XL] 300 mg PO DAILY 04/27/17 [Last Taken 07:00] - NPO status NPO Since - Liquids (Date): 06/27/17 NPO Since - Liquids (Time): 00:00 NPO Since - Solids (Date): 06/27/17 NPO Since - Solids (Time): 00:00 - Anes Hx Anes Hx: no prior problems - Smoking Hx Smoking Status: Never smoked ANE Labs/Vital Signs - Labs Result Diagrams: 06/23/17 20:12 06/23/17 20:12 - Vital Signs Blood Pressure: 110/61 Heart Rate: 73 Respiratory Rate: 14 O2 Sat (%): 90 Height: 160.02 cm Weight: 88.451 kg ANE Physical Exam - Airway Neck exam: FROM Mallampati Score: Class 2 Mouth exam: normal dental/mouth exam - Pulmonary Pulmonary: no respiratory distress - Cardiovascular Cardiovascular: regular rate and rhythym - ASA Status ASA Status: III ANE Anesthesia Plan Anesthesia Plan: general endotracheal anesthesia
--- NOTE | 2017-06-27 13:35 | SOAPPROG ---
SOAP Progress Note Assessment/Plan: Assessment: 46 Y F hx HIV admitted with recurrent diverticulitis. OR today for lap assisted sigmoid collectomy. Pt on standing abx. Consent in chart. NPO S: Eager to have surgery O: Lying in bed, NAD MMM No increased WOB Abdomen soft, minimally tender in the LLQ Objective: Vital Signs Temp Pulse Resp BP Pulse Ox 36.8 C 73 14 110/61 90 L 06/27/17 11:08 06/27/17 13:11 06/27/17 13:11 06/27/17 13:11 06/27/17 13:11 Laboratory Results 06/23/17 20:12 06/23/17 20:12 06/26/17 06/27/17 06/28/17 05:59 05:59 05:59 Intake Total 800 500 Output Total 2000 1000 Balance -1200 -500 ICD10 Worksheet Patient Problems: Problems Problem Status Onset Diverticulitis Acute
[2017-06-27] MEDS ORDERED: PHENYLEPHRINE HCL 100 MCG/ML SYR ONE (13:50)
[2017-06-27] MEDS ORDERED: ONDANSETRON 4 MG/2 ML VIAL IVP PRN (15:24)
[2017-06-27] MEDS ORDERED: LR 500 ML IV PRN (15:24)
[2017-06-27] MEDS ORDERED: NALOXONE HCL 0.4 MG/ML INJ IVP PRN (15:24)
[2017-06-27] MEDS ORDERED: PROMETHAZINE HCL 25 MG/ML INJ IVP PRN (15:24)
[2017-06-27] MEDS ORDERED: METOCLOPRAMIDE 10 MG/2 ML VIAL IVP PRN (15:24)
[2017-06-27] MEDS ORDERED: ALBUTEROL 3 ML DEYVIAL IH PRN (15:24)
[2017-06-27] MEDS ORDERED: OXYCODONE/APAP 5/325 TAB PO PRN (15:24)
[2017-06-27] MEDS ORDERED: SUGAMMADEX SODIUM 200 MG/2 ML VIAL IVP ONE (15:25)
--- NOTE | 2017-06-27 15:56 | POSTOPPROG ---
Post Op Note Date of Operation: 06/27/17 Surgeon: Seven Manzo Stock Crane Operator: Bianca HARRELL Anesthesiologist: Salbador Anesthesia: GET(General Endotracheal) Pre-op Diagnosis: Diverticulitis Post-op Diagnosis: same Indication: LLQ abdominal pain, recurrent episodes diverticulitis Procedure: Sigmoid colon resection Findings: Minimal diverticuli Inf/Abcess present in the surg proc area at time of surgery?: No Depth: Organ Space EBL: Minimal Specimen(s): Sigmoid colon and anastomotic rings
--- NOTE | 2017-06-27 15:58 | POSTANESTH ---
Post Anesthetic Evaluation Cardiovascular Status: Normal, Stable Respiratory Status: Normal, Stable Level of Consciousness/Mental Status: Can Participate in Eval Pain Control: Adequate, Prn Tx Ordered Nausea/Vomiting Control: Adequate, Prn Tx Ordered Complications Possibly Related to Anesthesia: None Noted
[2017-06-27] MEDS ORDERED: HYDROmorphONE/DILAUDID 1 MG/ML INJ ONE (16:07)
[2017-06-27] MEDS: fentaNYL 100 MCG/2 ML INJ IVP PRN ×2 (16:10→16:25)
[2017-06-27] MEDS: HYDROmorphONE/DILAUDID 1 MG/ML INJ IVP PRN ×4 (16:15→22:34)
[2017-06-28] MEDS: ACETAMINOPHEN 325 MG TAB PO PRN (06:40)
[2017-06-28] MEDS: DARUNAVIR ETHANOLATE 800 MG TAB PO SCH (08:46)
[2017-06-28] MEDS: ERTAPENEM 1 GM in NS 100 ML IV SCH (08:46)
[2017-06-28] MEDS: RITONAVIR 100 MG TAB PO SCH (08:46)
[2017-06-28] MEDS: buPROPion XL 150 MG TAB PO SCH (08:46)
[2017-06-28] MEDS: Emtricitabine/Tenofov Alafenam [Descovy 200-25 Mg Tablet] 1 EACH) PO SCH (08:47)
[2017-06-28] MEDS: HYDROmorphONE/DILAUDID 1 MG/ML INJ IVP PRN (10:51)
[2017-06-28] MEDS ORDERED: KETOROLAC 15 MG/1 ML SDV IVP PRN (12:10)
[2017-06-28] MEDS ORDERED: KETOROLAC 30 MG/1 ML SDV IVP ONE (12:15)
--- NOTE | 2017-06-28 16:04 | SOAPPROG ---
SOAP Progress Note Assessment/Plan: Assessment: Feeling much better/abdomen soft/afebrile/still very tender in the left lower quadrant with palpated Tolerating clear liquids/positive flatus/urine output okay Plan: Sigmoid colectomy in the a.m./risks and options fully discussed the patient wishes to proceed rather than wait for another attack 06/26/17 09:36 06/28/17 16:03 comfortable/ positive flatus and bowel movements/ abdomen soft with bowel sounds/ wound okay/ afebrile / vital signs stable Plan advance diet Objective: Vital Signs Temp Pulse Resp BP Pulse Ox 36.7 C 63 16 98/66 L 93 06/28/17 15:34 06/28/17 15:34 06/28/17 15:34 06/28/17 15:34 06/28/17 15:34 Laboratory Results 06/23/17 20:12 06/23/17 20:12 06/27/17 06/28/17 06/29/17 05:59 05:59 05:59 Intake Total 500 1200 Output Total 1000 30 900 Balance -500 1170 -900 ICD10 Worksheet Patient Problems: Problems Problem Status Onset Diverticulitis Acute
[2017-06-29] MEDS: RITONAVIR 100 MG TAB PO SCH (08:27)
[2017-06-29] MEDS: buPROPion XL 150 MG TAB PO SCH (08:27)
[2017-06-29] MEDS: ERTAPENEM 1 GM in NS 100 ML IV SCH (08:27)
[2017-06-29] MEDS: Emtricitabine/Tenofov Alafenam [Descovy 200-25 Mg Tablet] 1 EACH) PO SCH (08:28)
[2017-06-29] MEDS: DARUNAVIR ETHANOLATE 800 MG TAB PO SCH (08:28)
[2017-06-29 08:43] VITALS: RESP 14
[2017-06-29] MEDS ORDERED: POLYETHYLENE GLYCOL 3350 17 GM PKT PO PRN (11:06)
[2017-06-29 11:37] VITALS: BP 122/73; PULSE 70; TEMP 98.1; O2SAT 98
--- NOTE | 2017-06-29 13:08 | SOAPPROG ---
SOAP Progress Note Assessment/Plan: Assessment: Feeling much better/abdomen soft/afebrile/still very tender in the left lower quadrant with palpated Tolerating clear liquids/positive flatus/urine output okay Plan: Sigmoid colectomy in the a.m./risks and options fully discussed the patient wishes to proceed rather than wait for another attack 06/26/17 09:36 06/28/17 16:03 comfortable/ positive flatus and bowel movements/ abdomen soft with bowel sounds/ wound okay/ afebrile / vital signs stable Plan advance diet 06/29/17 13:07 DOING WELL TODAY STATUS POST LOW ANTERIOR COLECTOMY/AFEBRILE/POSITIVE FLATUS/ WOUND OKAY/ABDOMEN SOFT HOME TODAY ON A HIGH-FIBER DIET/INSTRUCTIONS GIVEN Objective: Vital Signs Temp Pulse Resp BP Pulse Ox 36.7 C 70 14 122/73 H 98 06/29/17 11:34 06/29/17 11:34 06/29/17 11:34 06/29/17 11:34 06/29/17 11:34 Laboratory Results 06/23/17 20:12 06/23/17 20:12 06/28/17 06/29/17 06/30/17 05:59 05:59 05:59 Intake Total 1200 1360 Output Total 30 1600 600 Balance 1170 240 600 ICD10 Worksheet Patient Problems: Problems Problem Status Onset Diverticulitis Acute
--- NOTE | 2017-06-29 15:13 | ASDISCHSUM ---
Discharge Information Plan Status:Home with No Needs Medically Cleared to Leave:06/29/2017 Discharge Date:06/29/2017 01:08 PM CM D/C Disposition:Home, Routine, Self-Care ADT D/C Disposition:Home, Routine, Self-Care Projected Discharge Date:06/29/2017 01:08 PM Transportation at D/C:Family Discharge Delay Reason: Follow-Up Date:06/29/2017 01:08 PM Discharge Slot: Final Diagnosis: Placement Information Patient Contact Information Contact Name:YURI Relationship:Son Address:[address] City:[place] Alternate Phone: [facility]/Zip Code:[place] [address] Email: Financial Information Financial Class:[facility] Primary Plan Desc:[facility] [place] [facility] Primary Plan Number:[id number] Secondary Plan Desc: Secondary Plan Number: Assessment Information [facility] CM Progress Note CM Note CM Note Notes: Pt being treated for diverticulitis, anticipate will dc home w/support of family when medically stable. CM available for any changes. Date Signed: 06/24/2017 09:32 AM Electronically Signed By:Leigh Garner RN [facility] CM Progress Note CM Note CM Note Notes: Spoke w/KAT, pt having surgery today, still anticipate pt will dc home w/support of family when medically stable. CM available for any changes. Date Signed: 06/27/2017 11:38 AM Electronically Signed By:Leigh Garner RN [facility] CM Progress Note CM Note CM Note Notes: Pt s/p colon resection for recurrent diverticulitis. Discharging home today with no CM needs. Date Signed: 06/29/2017 03:12 PM Electronically Signed By:JOSE M Mo Intervention Information
== END 2017-06-29 13:08 | disposition home or self-care (01) | DRG 329 ==
LOC: F3N 16:59 → OBSVTOIN 06-25 13:39 → F3E 06-26 17:16
PROVIDERS: ADMIT Surgery; ATTEND Surgery
PROC: 0DTN4ZZ Resection of Sigmoid Colon, Percutaneous Endoscopic Approach (ICD-10-PCS; principal; 2017-06-27 11:30)
DX: K57.32 Diverticulitis of large intestine without perforation or abscess without bleeding (principal); B20 Human immunodeficiency virus [HIV] disease
CPT/HCPCS: G0378; J1100; J1170; J1335; J1885; J2250; J2370; J2405; J2704; J3010

== ENCOUNTER 2018-05-27 12:05 | Emergency (ER) | payer OTHER ==
[2018-05-27 12:53] LABS: PLATELET COUNT 143 10^3/uL (150-400)
[2018-05-27] MEDS ORDERED: ONDANSETRON 4 MG/2 ML VIAL IVP ONE (13:02)
[2018-05-27] MEDS ORDERED: NS 1,000 ML IV ONE (13:02)
[2018-05-27] MEDS ORDERED: IOPAMIDOL (ISOVUE-300) 100 ML BTL ONE (14:24)
--- NOTE | 2018-05-27 14:24 | EDPHY ---
H & P Smoking Status: Never smoked Time Seen by Provider: 05/27/18 13:49 HPI/ROS: CHIEF COMPLAINT: Abdominal pain, diarrhea, nausea HISTORY OF PRESENT ILLNESS: 47-year-old female with a known history of HIV positive with undetected viral load presents to the emergency department with abdominal pain and diarrhea for the last 1 week. The patient had partial colectomy by Dr. Delmar Manzo June 2017. She describes her abdominal pain is diffuse and constant. She has felt nauseous although no vomiting. No known fevers. No back pain. No pain or chest or difficulty breathing. No reported trauma. No blood in her stool. No recent antibiotics recent travel. Patient had a normal bowel movement earlier this morning. REVIEW OF SYSTEMS: Constitutional: No fever, no chills. Eyes: No double or blurry vision. ENT: No sore throat. Respiratory: No cough, no shortness of breath. Cardiac: No chest pain. Gastrointestinal: As above Genitourinary: No dysuria. Musculoskeletal: No neck or back pain. Skin: No rashes. Neurological: No headache. (Dawn Jjrina Lyn) Past Medical/Surgical History: HIV positive, partial colectomy due to diverticulitis June 2017, x2 (Josey Jj) Social History: Single and lives in [place] (Josey Jj) Physical Exam: General Appearance: Alert, no distress. Afebrile. Nontoxic appearing. Eyes: Pupils equal and round. Extraocular motions are all intact. ENT: Mouth: Mucous membranes moist. Respiratory: No wheezing, rhonchi, or rales, lungs are clear to auscultation. Cardiovascular: Regular rate and rhythm. Gastrointestinal: Abdomen is soft. Tenderness with palpation diffusely throughout the entire abdomen. There is no masses, rebound or guarding noted. Well-healed surgical incisions noted diffuse to the abdomen. No CVA tenderness bilaterally. Neurological: Alert and oriented x 3, cranial nerves II through XII grossly intact Skin: Warm and dry, no rashes. Musculoskeletal: Nontender to palpate along the cervical, thoracic or lumbar spine. Neck is supple. Extremities: Full range of motion and no peripheral edema. Psychiatric: Patient is oriented X 3, there is no agitation. (АннаJosey Lyn) Constitutional: Initial Vital Signs Temperature (C) 37.1 C 05/27/18 12:14 Heart Rate 64 05/27/18 12:14 Respiratory Rate 18 05/27/18 12:14 Blood Pressure 145/88 H 05/27/18 12:14 O2 Sat (%) 98 05/27/18 12:14 O2 Delivery Mode Room Air Allergies/Adverse Reactions: tape Allergy (Uncoded 05/27/18 12:14) Home Medications: Medication Instructions Recorded Ascorbic Acid [Vitamin C 500 mg 1,000 mg PO DAILY 04/27/17 (*)] CALCIUM CARBONATE [CALCIUM] 600 mg PO DAILY 04/27/17 Cholecalciferol Vit D3 [Vitamin D3 1,000 units PO DAILY 04/27/17 (*)] Cyanocobalamin (Vitamin B-12) 2,500 mcg PO DAILY 04/27/17 [Vitamin B12] Darunavir Ethanolate [Prezista] 800 mg PO DAILY 04/27/17 Emtricitabine/Tenofov Alafenam 1 each PO DAILY 04/27/17 [Descovy 200-25 mg Tablet] Herbals/Supplements -Info Only 1 ea PO DAILY 04/27/17 Multivitamins [Multivitamin (*)] 1 each PO DAILY 04/27/17 Ritonavir [Norvir] 100 mg PO DAILY 04/27/17 buPROPion XL [Wellbutrin 150mg XL] 300 mg PO DAILY 04/27/17 Medical Decision Making - Diagnostics Imaging: Discussed imaging studies w/ physical therapy attendant Radiologist ED Course/Re-evaluation: 47-year-old female presents to the emergency department with abdominal pain. The patient had history of previous colectomy. I was concerned about possible perforation. CT imaging of the abdomen and pelvis was ordered which revealed evidence of constipation without evidence of colitis or free air. Patient was encouraged to have close follow-up with primary care provider. She was told to return to the emergency department if she developed recurring abdominal pain, fever, vomiting, or if she felt worse in any way. She was comfortable with this plan. (Josey Jj) Differential Diagnosis: Including but not limited to bowel obstruction, colitis, acute appendicitis, diverticulitis, cholecystitis (Josey Jj) Other Provider: The patient was evaluated and managed by the Physician Hydro[employer] Station Chief. I discussed the patient's presentation and course with the midlevel provider with them and agree with the evaluation. My co-signature indicates that I have reviewed this chart and I agree with the findings and plan of care as documented. I am the secondary supervising physician. (Corazon Murry) - Data Points Laboratory Results: Laboratory Results 05/27/18 12:40 05/27/18 12:40 Medications Given: Discontinued Medications Sodium Chloride (Ns) 1,000 mls @ 3,000 mls/hr IV ONCE ONE Stop: 05/27/18 13:21 Last Admin: 05/27/18 13:05 Dose: 1,000 mls Ondansetron HCl (Zofran) 4 mg IVP EDNOW ONE Stop: 05/27/18 13:03 Last Admin: 05/27/18 13:06 Dose: 4 mg Departure - Departure Disposition: Home, Routine, Self-Care Clinical Impression: Abdominal pain, Constipation Condition: Good Instructions: Constipation (ED), Acute Abdominal Pain (ED) Additional Instructions: Abdominal Pain: Return to the Emergency Department immediately for increasing pain, fever, vomiting, or if not completely better in 8-12 hours. You have evidence of constipation on your CT scan. You may try over-the- counter magnesium citrate to help relieve symptoms of constipation. Drink plenty of fluids. Referrals: Elena Santacruz MD [Primary Care Provider] - As per Instructions
[2018-05-27 15:59] VITALS: BP 152/59
== END 2018-05-27 16:08 | disposition home or self-care (01) ==
DX: R10.9 Unspecified abdominal pain (principal); K59.00 Constipation, unspecified; Z90.49 Acquired absence of other specified parts of digestive tract; Z21 Asymptomatic human immunodeficiency virus [HIV] infection status
CPT/HCPCS: 96374; J2405; Q9967

== ENCOUNTER → 2018-07-01 | Outpatient (CLI) | payer BC, OTHER | LOC: FIMAGING 10:44 | PROVIDERS: ATTEND Internal Medicine | DX: Z12.31 Encounter for screening mammogram for malignant neoplasm of breast (principal) ==

== ENCOUNTER 2018-08-18 23:01 | Emergency (ER) | payer OTHER ==
[2018-08-18 23:09] VITALS: BP 143/75
--- NOTE | 2018-08-19 | EDPHY ---
H & P Stated Complaint: R FOOT INJ 3 DAYS AGO/INC SWELLING Time Seen by Provider: 08/18/18 23:20 HPI/ROS: Chief Complaint: Foot injury HPI: 48-year-old woman dropped a heavy box on her foot 3 days ago. She has been having increasing swelling and discoloration of her right big toe. It hurts to walk. She has a history of injury as a child. No other injuries at this time. ROS: 10 systems were reviewed and were negative except those elements noted in the HPI. PMH: Social History: No smoking, no alcohol, no recreational drug use Family History: non-contributory Physical Exam: Gen: Awake, Alert, No Distress Right foot: Patient has tenderness along the proximal and distal phalanx of her right great toe. There is ecchymosis. There is no significant deformity. Sensations intact. Capillary refills less than 2 sec. 2+ dorsalis pedis pulses. Ankles, nontender, full range of motion without pain - Personal History LMP (Females 10-55): Hysterectomy Current Tetanus Diphtheria and Acellular Pertussis (TDAP): Yes - Medical/Surgical History Hx Asthma: No Hx Chronic Respiratory Disease: No Hx Diabetes: No Hx Cardiac Disease: No Hx Renal Disease: No Hx Cirrhosis: No Hx Alcoholism: No Hx HIV/AIDS: Yes Hx Splenectomy or Spleen Trauma: No Other PMH: hiv +, hysterectomy (2013), c section x 2, tonsillectomy, PART COLON REMOVAL - Social History Smoking Status: Never smoked Constitutional: Initial Vital Signs Temperature (C) 36.8 C 08/18/18 23:07 Heart Rate 76 08/18/18 23:07 Respiratory Rate 16 08/18/18 23:07 Blood Pressure 143/75 H 08/18/18 23:07 O2 Sat (%) 96 08/18/18 23:07 O2 Delivery Mode Room Air Allergies/Adverse Reactions: tape Allergy (Uncoded 05/27/18 12:14) Home Medications: Medication Instructions Recorded Ascorbic Acid [Vitamin C 500 mg 1,000 mg PO DAILY 04/27/17 (*)] CALCIUM CARBONATE [CALCIUM] 600 mg PO DAILY 04/27/17 Cholecalciferol Vit D3 [Vitamin D3 1,000 units PO DAILY 04/27/17 (*)] Cyanocobalamin (Vitamin B-12) 2,500 mcg PO DAILY 04/27/17 [Vitamin B12] Herbals/Supplements -Info Only 1 ea PO DAILY 04/27/17 Multivitamins [Multivitamin (*)] 1 each PO DAILY 04/27/17 buPROPion XL [Wellbutrin 150mg XL] 300 mg PO DAILY 04/27/17 Bictegrav/Emtricit/Tenofov Ala 08/18/18 [Biktarvy 50-200-25 mg Tablet] Medical Decision Making - Diagnostics Imaging Results: There is a small avulsion fracture of the proximal lateral portion of the distal phalanx. No other deformity noted. Patient has been placed in a orthopedic shoe. Will be discharged with follow up with Orthopedics as needed. Departure - Departure Disposition: Home, Routine, Self-Care Clinical Impression: Toe fracture Condition: Good Instructions: Toe Fracture (ED) Additional Instructions: Follow up with orthopedist in 5-7 days for further evaluation. Take ibuprofen, 600 mg every 8 hr. You may alternate with acetaminophen, 1000 mg every 8 hr. Referrals: Elena Santacruz MD [Primary Care Provider] - As per Instructions Diego Cerna MD [Medical Doctor] - As per Instructions
== END 2018-08-19 00:17 | disposition home or self-care (01) ==
DX: S92.421A Displaced fracture of distal phalanx of right great toe, initial encounter for closed fracture (principal); M20.11 Hallux valgus (acquired), right foot; M19.071 Primary osteoarthritis, right ankle and foot; M77.31 Calcaneal spur, right foot; Z21 Asymptomatic human immunodeficiency virus [HIV] infection status; Z90.49 Acquired absence of other specified parts of digestive tract; W23.0XXA Caught, crushed, jammed, or pinched between moving objects, initial encounter; Y93.9 Activity, unspecified; Y92.9 Unspecified place or not applicable; Y99.9 Unspecified external cause status

== ENCOUNTER → 2018-12-09 | Outpatient (CLI) | payer OTHER ==
[~2018-12-09] MED LIST changes: +GADOBUTROL 10 ML VIAL IVP ONE; -IOPAMIDOL (ISOVUE-300) 100 ML BTL ONE
== END ==
LOC: FIMAGING 11:21
PROVIDERS: ATTEND Physician Assistant Medical
DX: R42 Dizziness and giddiness (principal); R51 Headache; Z21 Asymptomatic human immunodeficiency virus [HIV] infection status
CPT/HCPCS: A9585